=== PATIENT | male | born 2005 | race Caucasian/White ===

== ENCOUNTER 2025-01-01 10:34 | Emergency (ER) | payer OTHER, SELFPAY ==
[2025-01-01 11:19] VITALS: BP 130/63; PULSE 74; RESP 18; TEMP 36.5; O2SAT 100; BMI 24.2
--- NOTE | 2025-01-01 11:49 | PC.NURSE ---
Patient post op from tonsillectomy at [facility]. Went to [facility] yesterday and presents today with same complaints of bleeding and pain. Assessment revealed dark red area to left tonsil, right tonsil appeared well healed. Patient was spitting into a bucket, mostly saliva, some tiny bloody clots. Not excessive, mouth was not coated in blood and neither were his teeth. Vital signs in triage were stable. Mother doing all the talking, patient typing on his phone to answer questions. Explained wait times and patient and mother decided to leave ED from triage and present to [facility] where he had his surgery and where his provider is in practice. Educated risk vs benefits of leaving and staying, both acknowledged and decided to leave at [id number]. Patient left under own power.
== END 2025-01-01 11:49 | disposition left against medical advice (07) ==
PROVIDERS: Emergency Provider Family Medicine
DX: R04.1 Hemorrhage from throat (principal); Z53.21 Procedure and treatment not carried out due to patient leaving prior to being seen by health care provider
CPT/HCPCS: 99281